=== PATIENT | female | born 1990 | race African-American/Black ===

== ENCOUNTER 2023-10-28 19:32 | Outpatient (REF) | payer OTHER, SELFPAY | END 2023-10-28 19:33 | disposition home or self-care (01) | LOC: LAB 19:32 | PROVIDERS: Visit Provider Physician Assistant | DX: Z01.419 Encounter for gynecological examination (general) (routine) without abnormal findings (principal) | CPT/HCPCS: 87624; G0145 ==

== ENCOUNTER 2024-11-02 20:32 | Outpatient (REF) | payer OTHER, SELFPAY ==
--- OUTSIDE RECORDS SUMMARY | 2024-06-30 09:58 | XMS_ITS | Continuity of Care Document ---
Author Organization [facility] Address [address] [place] [address] Phone Care Team Providers Care Electrical Equipment Technician Name Role Phone Senthil HAZEL HOOPERDanitza Unavailable Unavaila ble Allergies, Adverse Reactions, Alerts Substance Reaction Status Criticality No Known Allergies Active No Inform ation Medications Medication Instructions Dosage Effective Dates (start - stop) Status Comments doxycycline hyclate 100 mg capsule take 1 capsule by oral route 2 times every day for 7 days - Active Problems Condition Type Effective Dates (start - stop) Clini ramses Status Comments No Known Problems Procedures Procedure Date ROUTINE VENIPUNCTURE OFFICE/OUTPATIENT VISIT, EST [employer] Periodic Oral Eval Estab Patient 2022 Prophylaxis Adult Nutrit Couns For Control Of [place] Dis May Oral Hygiene Instruction Prophylaxis Adult Nutrit Couns For Control Of [place] Dis Nov Oral Hygiene Instruction Extract; Erupted Th/exposted Rt 022 [employer] Periodic Oral Eval Estab Patient 2021 Prophylaxis Adult Nutrit Couns For Control Of [place] Dis Dec Oral Hygiene Instruction Bitewings [employer] Films Panoramic Film Prophylaxis Adult Periodic Oral Eval Estab Patient 2019 Oral Hygiene Instruction Prophylaxis Adult Oral Hygiene Instruction Intraoral-complete Series (bw) 18 Comp Oral Eval New/estab Patient 2017 Nutrit Couns For Control Of [place] Dis May Oral Hygiene Instruction INIT PM E/M, NEW PAT 65+ YRS URINALYSIS, NONAUTO W/SCOPE SPECIMEN HANDLING THIN PREP PAP W/REFLEX TO ASCUS 009 Advance Directives Directive Yes / No Effective Date File Name No Information Encounters Encounter Description Practice Location Reason(s) For Visit Diagnoses Date Provider Providers Copied on Encounter [facility], [address] [place] [address], [id number], [place] tel:[phone] [facility] No Information 5 [facility] Danitza. [address] [place] [address], [id number], [place]. tel:[phone] [facility], [address] [place] [address], [id number], [place] tel:[phone] [facility] No Information 4 [facility] Daintza. [address] [place] [address], [id number], [place]. tel:[phone] OFFICE/OUTPAT IENT VISIT, EST [facility], [address] [place] [address], [id number], [place] tel:[phone] [facility] STD exposure (chief complaint) STD exposureBody mass index [BMI] 26.0-26.9, adult- STD High risk heterosexual behavior- STD screen- HIV 4 [facility] Danitza. [address] [place] [address], [id number], [place]. tel:[phone] [facility], [address] [place] [address], [id number], [place] tel:[phone] [facility] [place] ([place]) Encounter for screening for dental disorders 3 Paige Rose. [address] [place], [address], [place]. tel:[phone] [facility], [address] [place], [place], [id number], [place] tel:[phone] [facility] [place] ([place]) Encounter for screening for dental disorders 3 Cas Lenz. [address] [place], [place], [id number], [place]. tel:[phone] [facility], [address], [place], [id number], [place] tel:[phone] [facility] extraction (chief complaint) No Information 2 Kostas Maria. [address], [place], [id number], [place]. tel:[phone] [facility], [address], [place], [id number], [place] tel:[phone] [facility] Adult Prophy (chief complaint) Encounter for screening for dental disorders 2 Paige Rose. [address] [place], [address], [place]. tel:[phone] [facility], [address], [place], [id number], [place] tel:[phone] [facility] [place] ([place] complaint) Encounter for screening for dental disorder 0 Jose Cazares. [address], [place], [id number], [place]. tel:[phone] [facility], [address], [place], [id number], [place] tel:[phone] [facility] Encounter for screening for dental disorders 9 Mickie Moon. [address], [place], [id number], [place]. tel:[phone] [facility], [address], [place], [id number], [place] tel:[phone] [facility] dental new (chief complaint) Encounter for screening for dental disorders 8 Mickie Red. [address], [place], [id number], [place]. tel:[phone] INIT PM E/M, NEW PAT 65+ YRS [facility], [address], [place], [id number], [place] tel:[phone] [facility] No Information 9 Alli Sousa. [address] [place] [address], [id number]. tel:[phone] Family History Family Member Type Diagnosis Age At Onset Father Problem (finding) Alive and well Mother Problem (finding) Alive and well Father Problem (finding) hypertension Payers Payer name Insurance type Covered green party ID Authoriza tion(s) [employer] CFC [id number] Medicaid Wrap - [facility] [id number] Social History Type Description Quantity Date Captured Comments Alcohol Use Details Unknown Caffeine Use Details Unknown Tobacco Use Status No Information Smoking Status No Information Sex Female Sexual Orientation Straight or heterosexual May Gender Identity Female Chief Complaint And Reason For Visit No Information Reason For Referral Reason For Referral No Information Plan Of Treatment Date Type Action Status Goal Hep A. Due on du e Goal Influenza vaccine. Due on due Goal Tdap. Due on due Goal Hepatitis C screening. Due o n due Goal HPV. Due on due Goal Unhealthy drug use screening . Due on due Goal Tdap Vaccine. Due on 2024 due Goal PRAPARE ASSESSMENT. Due on due Goal RLP. Due on due Goal Depression screening. Due on due Goal PRAPARE ASSESSMENT. Due on due Goal Depression screening. Due on due Goal Influenza vaccine. Due on due Goal Tdap Vaccine. Due on 2023 due Goal Tdap. Due on due Goal HPV. Due on due Goal RLP. Due on due Goal Hepatitis C screening. Due o n due Goal Unhealthy drug use screening . Due on due Goal Hepatitis C screening. Due o n due Goal HPV. Due on due Goal RLP. Due on due Goal PRAPARE ASSESSMENT. Due on due Goal Tdap Vaccine. Due on 2023 due Goal Depression screening. Due on due Goal Influenza vaccine. Due on due Goal Unhealthy drug use screening . Due on due Goal Tdap. Due on due Goal Dietary management education , guidance, and counseling completed Goal PRAPARE ASSESSMENT. Due on due Goal RLP. Due on due Goal Tdap. Due on due Goal Hepatitis C screening. Due o n due Goal Depression screening. Due on due Goal Tdap Vaccine. Due on 2022 due Goal Influenza vaccine. Due on due Goal Unhealthy drug use screening . Due on due Goal HPV. Due on due Goal RLP. Due on due Goal Hep A. Due on du e Goal Depression screening. Due on due Goal Tdap Vaccine. Due on 2022 due Goal Influenza vaccine. Due on Ju due Goal Hep A. Due on du e Goal Tdap. Due on due Goal PRAPARE ASSESSMENT. Due on J due Goal Tdap. Due on due Goal RLP. Due on due Goal Depression screening. Due on due Goal PRAPARE ASSESSMENT. Due on O due Goal Influenza vaccine. Due on Oc due Goal Tdap. Due on due Goal Influenza vaccine. Due on due Goal Depression screening. Due on due Goal RLP. Due on due History Of Present Illness Encounter Date Complaint History Of Prese nt Illness STD exposure Additional infor mation: -Patient is here for STD screen. states her partner was exposed to ureaplama. She is requesting HIV, RPR and Hep C in addition to cervical cultures. She has an issues with chronic BV in the past. JEFF AGUILAR JEFF AGUILAR extraction Continue with tr eatment Adult Prophy Adult Prophy JEFF AGUILAR dental new dental [facility] Functional Status Date Functional Assessmen t No Information Instructions Date Instruction Additional Infor matty Cervical cultures an d ureaplama culture sent to lab. Patient to call in 1 week for result Related to - STD screen HIV, RPR and Hep C d rawn and sent to lab, Patient to call in 1 week for result. Encouraged to use condoms to prevent STDs in the future. Related to - HIV Giving encouragement to exercise Related to Body mass index [BMI] 26.0-26.9, adult Dietary management e ducation, guidance, and counseling Related to Body mass index [BMI] 26.0-26.9, adult Assessments Type Assessment Date No Information Patient Care Teams Name Effective Dates (start - stop) Status Members No Information
--- OUTSIDE RECORDS SUMMARY | 2024-10-06 09:15 | XMS_ITS ---
Author Organization [facility] Address [address] [place] [address] Care Team Providers Care Medicaid Analyst Name Role Phone Susan Pretty Primary Care Provider [phone] Donna Monteiro [phone] REASON FOR VISIT BH F/U Encounters Encounter Location Date Provider Diagnosis [facility] [address] [place] [address] 10/06/2024 Susan Pretty Plan Of Treatment Next Appt Details Provider Name:Susan Pretty , 11/02/2024 11:15:00 AM, [address] [place], [address], Progress Notes * LUZ ELENA ESPINOSA ODOB:[birth year] (34 yo F)Acc No.[id number]:10/06/2024 F/U - Patient Patient: Cherrie LUZ ELENA SANDY Provider: KEN Seaman :1990 A ge:34 Y S ex:Female Date:10/06/2024 Address:[address] [id number] Subjective: * Chief Complaints: * 1 . BH F/U. Objective: Therapeutic Interventions: Assessment: Plan: * Images: Care Plan Details* * Electronic signature of KEN Cantu on 11/02/2024 at 09:44 AM EDT Sign off status: Pending * Provider: KEN Seaman Date: 0 10/06/2024 Generated for Heidi phelps/Samra/Noel on: 0 11/02/2024 09:44 AM EDT
--- OUTSIDE RECORDS SUMMARY | 2024-10-12 13:30 | XMS_ITS ---
Author Organization [facility] Address [address] [place] [address] Care Team Providers Care Finance Assistant Name Role Phone Susan Pretty Primary Care Provider Donna Monteiro [phone] REASON FOR VISIT F/U Encounters Encounter Location Date Provider Diagnosis [facility] [address] [place] [address] 10/12/2024 Susan Pretty Plan Of Treatment Next Appt Details Provider Name:Susan Pretty , 11/02/2024 11:15:00 AM, [address] [place], [address], Progress Notes * LUZ ELENA ESPINOSA ODOB:[birth year] (34 yo F)Acc No.[id number]:10/12/2024 F/U - Patient Patient: Cherrie LUZ ELENA SANDY Provider: KEN Seaman :1990 A ge:34 Y S ex:Female Date:10/12/2024 Address:[id number] Subjective: * Chief Complaints: * 1 . BH F/U. Objective: Therapeutic Interventions: Assessment: Plan: * Images: Care Plan Details* * Electronic signature of KEN Cantu on 11/02/2024 at 09:44 AM EDT Sign off status: Pending * Provider: KEN Seaman Date: 0 10/12/2024 Generated for Heidi phelps/Samra/Noel on: 0 11/02/2024 09:44 AM EDT
--- OUTSIDE RECORDS SUMMARY | 2024-11-02 10:00 | XMS_ITS | Encounter Summary ---
Author Organization [facility] Address [address] [place] [address] Care Team Providers Care Transport Corps Officer Name Role Phone Unavailable Primary Care Provider Unavailabl e Reason for Visit * Reason Comments Well Women Visit Encounter Details Date Type Department Care Team (Late st Contact Info) Description 11/02/2024 10:00 AM EDT Office Visit [facility] [address] [facility] [place] [address] Susy Llanes PA [address] [place], [id number] Well woman exam with routine gynecological exam; Encounter for screening examination for sexually transmitted disease; Pelvic pain in female; Cervicitis and endocervicitis Social History Tobacco Use Types Packs/Day Years Used Date Smoking Tobacco: Former Cigarettes Smokeless Tobacco: Never Alcohol Use Standard Drinks/Week Comments Yes 1 (1 standard drink = 0.6 oz pur e alcohol) AUDIT-C Answer Date Recorded Q1: How often do you have a drink containing alc ohol? Monthly or less 05/03/2023 Q2: How many drinks containi ng alcohol do you have on a typical day when you are drinking? 1 or 2 05/03/2023 Frequency of Binge Drinking Not on file 04/08 Comments No Sex and Gender Information Value Date Recorded Sex Assigned at Female 12/18/2022 11:54 AM EDT Legal Sex Female 6:40 PM EDT Gender Identity Female 12/18/2022 11:54 AM EDT Sexual Orientation Not on file Travel History Travel Start Travel End [place] 10/01/2024 10/04/2024 documented as of this encounter Last Filed Vital Signs Vital Sign Reading Time Taken Comments Blood Pressure 110/70 11/02/2024 9:59 AM EDT Pulse - - Temperature - - Respiratory Rate - - Oxygen Saturation - - Inhaled Oxygen Concentration - - Weight 75 kg (165 lb 4 oz) 11/02/2024 9:59 AM ED T Height - - Body Mass Index 26.67 10/28/2023 2:51 PM EDT documented in this encounter Progress Notes * JEFF Ariza - 11/02/2024 10:00 AM EDT Reason for Appointment: Patient ID: Dwayne Mayers is a 34 y.o. female who presents for Well Women Visit Patient presents today for Return OB appointment. MEDICATIONS Current Outpatient Medications Medication Instructions Levonorgestrel (Mirena, 52 MG,) 20 MCG/DAY intrauterine device Mirena valACYclovir (VALTREX) 500 mg, Oral, Daily ALLERGIES Allergies Allergen Reactions Depo-Provera [Medroxyprogesterone Acetate] GI intolerance vomiting PROBLEMS Active Ambulatory Problems Diagnosis Date Noted No Active Ambulatory Problems Resolved Ambulatory Problems Diagnosis Date Noted No Resolved Ambulatory Problems Past Medical History: Diagnosis Date Adenomyosis Depression (CMS/HCC) Endometriosis Genital herpes LGSIL on Pap smear of cervix HISTORY PAST MEDICAL HISTORY SOCIAL HISTORY Past Medical History: Diagnosis Date Adenomyosis Depression (CMS/HCC) Endometriosis Genital herpes LGSIL on Pap smear of cervix Social History Tobacco Use Smoking status: Former Types: Cigarettes Smokeless tobacco: Never Substance Use Topics Alcohol use: Yes Alcohol/week: 1.0 - 2.0 standard drink of alcohol Types: 1 - 2 Standard drinks or equivalent per week Drug use: Never FAMILY HISTORY Family History Problem Relation Name Age of Onset Hypertension Father Dad SURGICAL HISTORY Past Surgical History: Procedure Laterality Date DILATION AND CURETTAGE OF UTERUS 04/2016 PELVIC LAPAROSCOPY 2010 REVIEW OF SYSTEMS Review of Systems: Review of Systems Constitutional: Negative. HENT: Negative. Eyes: Negative. Respiratory: Negative. Cardiovascular: Negative. Gastrointestinal: Negative. Genitourinary: Negative. Musculoskeletal: Negative. Skin: Negative. Neurological: Negative. All other systems reviewed and are negative. Hematological: Negative. Endocrine: Negative. Allergic/Immunologic: Negative. OBJECTIVE Objective: Physical Exam Constitutional: Appearance: Normal appearance. Genitourinary: Right Adnexa: not tender and no mass present. Left Adnexa: not tender and no mass present. No cervical discharge. IUD strings visualized. Breasts: Breasts are soft. Right: Normal. Left: Normal. HENT: Head: Normocephalic. Nose: Nose normal. Mouth/Throat: Mouth: Mucous membranes are moist. Cardiovascular: Rate and Rhythm: Normal rate. Pulmonary: Effort: Pulmonary effort is normal. Abdominal: General: Bowel sounds are normal. Palpations: Abdomen is soft. Musculoskeletal: General: Normal range of motion. Cervical back: Normal range of motion. Neurological: General: No focal deficit present. Mental Status: She is alert. Skin: General: Skin is warm and dry. Psychiatric: Mood and Affect: Mood normal. Vitals and nursing note reviewed. Exam conducted with a property assessment monitor present. Vitals: Estimated body mass index is 26.67 kg/m?? as calculated from the following: Height as of 10/28/23: 5' 6 . Weight as of this encounter: 165 lb 4 oz. BP: 110/70 No LMP recorded (lmp unknown). Patient has had an implant. ASSESSMENT & PLAN ICD-10-CM 1. Well woman exam with routine gynecological exam Z01.419 Pap Smear HPV DNA probe, amplified 2. Encounter for screening examination for sexually transmitted disease Z11.3 SURESWAB(R) ADVANCED VAGINITIS PLUS, TMA CHLAMYDIA TRACHOMATIS (GENITO/STI) Neisseria gonorrhea DNA probe, direct CANCELED: SURESWAB(R) ADVANCED VAGINITIS PLUS, TMA CANCELED: CHLAMYDIA TRACHOMATIS (GENITO/STI) CANCELED: Neisseria gonorrhea DNA probe, direct 3. Pelvic pain in female R10.2 US pelvis transvaginal Annual Exam: Patient presents today for an annual exam. Patient states she is doing well and has no complaints. Pap was obtained without difficulty. Orders Placed This Encounter Procedures HPV DNA probe, amplified US pelvis transvaginal CHLAMYDIA TRACHOMATIS (GENITO/STI) Neisseria gonorrhea DNA probe, direct Patient having some pain suprapubic with palpation, strings noted on exam, we will order US for string placement and place pt on doxycycline for cervicitis Follow Up: Patient is to return in one year for annual unless needed otherwise. Documented by JEFF Ariza on behalf of: JEFF Ariza documented in this encounter Plan of Treatment Upcoming Encounters Date Type Department Care Team (Late st Contact Info) Description 11/07/2024 11:30 AM EDT Ancillary Procedure [facility] [address] [facility] [place] [id number] 11/06/2025 11:00 AM EDT Office Visit [facility] [address] [place] [id number] Susy Llanes PA [address] [place] [address] [place], [place] [id number] Scheduled Orders Name Type Priority Associated Diagnoses Orde r Schedule Pap Smear Pathology and Cytology Routine Well woman exam with routine gynecological exam Ordered: 11/02/2024 HPV DNA probe, amplified Microbiology Routine Well woman exam with routine gynecological exam Ordered: 11/02/2024 SURESWAB(R) ADVANCED VAGINITIS PLUS, TMA Pathology and Cytology Routine Encounter for screening examination for sexually transmitted disease Ordered: 11/02/2024 CHLAMYDIA TRACHOMATIS (GENITO/STI) Lab Routine Encounter for screening examination for sexually transmitted disease Ordered: 11/02/2024 Neisseria gonorrhea DNA probe, direct Lab Routine Encounter for screening examination for sexually transmitted disease Ordered: 11/02/2024 US pelvis transvaginal Imaging Routine Pelvic pain in female Expected: 11/02/2024, Expires: 05/05/2025 documented as of this encounter Visit Diagnoses Diagnosis Well woman exam with routine gynecological exam Routine gynecological examination Encounter for screening examination for sexually transmitted disease Pelvic pain in female Unspecified symptom associated with female genital organs Cervicitis and endocervicitis documented in this encounter
--- OUTSIDE RECORDS SUMMARY | 2024-11-02 20:36 | XMS_ITS | Patient Health Record ---
Author Organization [employer] [facility] es Address [address] [place] [address] Care Team Providers Care Director Call Name Role Phone Susan Pretty Primary Care Provider [phone] Donna Monteiro Unavailable [phone] Susan Barreto Unavailable [phone] Allergies No Known Allergies Results Component Value Reference Range Notes HIV RNA, Real Time PCR Reviewed date:03/23/2024 10:37:41 PM Interpretation: Performing Lab:, [facility], [facility] [place] Notes/Report: transmitted infection) Reason for Exam Routine screening for STI (sexually HIV-1 RNA (PCR) <20 . HIV-1 RNA not detected The reportable range for this assay is 20 to 10,000,000 copies HIV-1 RNA/mL. Log10 HIV-1 RNA . Result Units: min01jhmq/mL Unable to calculate result since non-numeric result obtained for component test. Performed at: [address] [id number] Kindergarten Teacher Assistant: Jacki Sellers MD, Phone: [phone] Hepatitis Acute Panel Reviewed date:03/23/2024 10:37:41 PM Interpretation: Performing Lab:, [facility], [address] [place] Notes/Report: Kindergarten Teacher Assistant: Chito Hunt PhD, Phone: [phone] [address] [place], [place] [id number] Performed at: [facility] infection. individual), or other evidence exists to indicate HCV suspected (which may be delayed in an immunocompromised transmitted infection) Not infected with HCV unless early or acute infection is Reason for Exam Routine screening for STI (sexually Hepatitis A Antibody IgM Negative Negative A negative anti-HAV IgM result suggests no recent or current HAV infection. HBsAg Screen Negative Negative Hepatitis B Core Antibody IgM Negative Negative Hepatitis C Virus Antibody Non Reactive Non Reactive Interpretation Hepatitis C Comment . RPR w/rfx to Quant & TP Abs Reviewed date:03/23/2024 10:37:41 PM Interpretation: Performing Lab:, [facility], [address] [place] [address] , [facility] Notes/Report: Kindergarten Teacher Assistant: Chito Hunt PhD, Phone: [phone] [address], [place] [phone] transmitted infection) Performed at: [facility] Reason for Exam Routine screening for STI (sexually RPR, Rfx Quant RPR Non Reactive Non Reactive Reason For Referral No Information Medications Medication SIG (Take, Route, Fr equency, Duration) Notes Start Date End Date Status FLUoxetine HCl 20 MG 1 capsule Orally On ce a day for 30 days 04/05/2024 Active LORazepam 0.5 MG 1 tablet Orally twice a day for 30 days As needed 05/11/2024 Active methylPREDNISolone 4 MG as directed Oral ly Once a day for 6 days 06/15/2024 Active Social History Tobacco Use: Social History Observation Description Date Details (start date - stop date) Former Smoker NA - NA AUDIT-C (Standard) Question Answer Notes Did you have a drink contain ing alcohol in the past year? Yes How often did you have six o r more drinks on one occasion in the past year? Less than monthly (1 point) How many drinks did you have on a typical day when you were drinking in the past year? 1 or 2 drinks (0 point) How often did you have a dri nk containing alcohol in the past year? Monthly or less (1 point) Points 2 Interpretation Negative Tobacco Control (Standard) Question Answer Notes Tobacco use: Former smoker Problems Problem Type SNOMED Code ICD Code Onset Dates Problem Status W/U Status Risk Notes Problem Posttraumatic stress disorder (66217321) PTSD (post-traumatic stress disorder) (F43.10) Active confirmed Problem Acute stress disorder (67622443) Acute stress disorder (F43.0) Active confirmed Problem 08286350 Situational anxiety (F41.8) Active confirmed Problem 71207558 Attention defici t hyperactivity disorder (ADHD), predominantly inattentive type (F90.0) Active confirmed Problem 44034595 GAUTAM (generalized anxiety disorder) (F41.1) Active confirmed Vital Signs Heart Rate 70 /min 05/11/2024 Temperature 97.8 degrees Fahrenheit 05/11/2024 Oximetry 96 % 05/11/2024 Blood pressure diastolic 80 mm Hg 05/11/2024 Height 66 in 05/11/2024 Blood pressure systolic 120 mm Hg 05/11/2024 Weight 162.8 lbs 05/11/2024 BMI 26.27 kg/m2 05/11/2024 Encounters Encounter Location Date Provider Diagnosis [facility] [address] [place] [address] 03/15/2024 Susan Barreto Routine screening fo r STI (sexually transmitted infection) Z11.3 [facility] [address] [place] [address] 03/17/2024 Susan Barreto [facility] [address] [place] [address] 05/15/2024 Susan Barreto [facility] [address] [place] [address] 04/05/2024 Susan Barreto PTSD (post-traumatic stress disorder) F43.10 [facility] [address] [place] [address] 05/11/2024 Susan Barreto PTSD (post-traumatic stress disorder) F43.10 [facility] [address] [place] [address] 12/01/2023 Susan Pretty Acute stress disorde r F43.0 and GAUTAM (generalized anxiety disorder) F41.1 [facility] [address] [place] [address] 12/15/2023 Susan Pretty Acute stress disorde r F43.0 and GAUTAM (generalized anxiety disorder) F41.1 [facility] [address] [place] [address] 12/29/2023 Susan Pretty Acute stress disorde r F43.0 ; GAUTAM (generalized anxiety disorder) F41.1 and Attention deficit hyperactivity disorder (ADHD), predominantly inattentive type F90.0 [facility] [address] [place] [address] 01/05/2024 Susan Pretty Acute stress disorde r F43.0 and GAUTAM (generalized anxiety disorder) F41.1 [facility] [address] [place] [address] 01/12/2024 Susan Pretty Acute stress disorde r F43.0 and GAUTAM (generalized anxiety disorder) F41.1 [facility] [address] [place] [address] 01/26/2024 Susan Pretty GAUTAM (generalized anxiety disorder) F41.1 and Acute stress disorder F43.0 [facility] [address] [place] [address] 02/23/2024 Susan Pretty GAUTAM (generalized anxiety disorder) F41.1 [facility] [address] [place] [address] 03/13/2024 Susan Pretty GAUTAM (generalized anxiety disorder) F41.1 [facility] [address] [place] [address] 04/05/2024 Susan Pretty PTSD (post-traumatic stress disorder) F43.10 [facility] [address] [place] [address] 05/26/2024 Susan Pretty PTSD (post-traumatic stress disorder) F43.10 [facility] [address] [place] [address] 06/14/2024 Susan Pretty PTSD (post-traumatic stress disorder) F43.10 [facility] [address] [place] [address] 04/26/2024 Susan Pretty GAUTAM (generalized anxiety disorder) F41.1 and Attention deficit hyperactivity disorder (ADHD), predominantly inattentive type F90.0 [facility] [address] [place] [address] 11/17/2023 Susan Pretty Acute stress disorde r F43.0 [facility] [address] [place] [address] 07/05/2024 Susan Pretty PTSD (post-traumatic stress disorder) F43.10 [place] [address] [place] [address] 07/18/2024 Susan Pretty PTSD (post-traumatic stress disorder) F43.10 [address] [place] [address] 09/27/2024 Susan Pretty PTSD (post-traumatic stress disorder) F43.10 [address] [place] [address] 11/24/2023 Susan Estevan Attention deficit hyperactivity disorder (ADHD), predominantly inattentive type F90.0 ; GAUTAM (generalized anxiety disorder) F41.1 and Acute stress disorder F43.[address] [place] [address] 06/15/2024 Susan Barreto Acute non-recurrent maxillary sinusitis J01.00 [facility] [address] [place] [address] 11/12/2023 Susan Pretty GAUTAM (generalized anxiety disorder) F41.1 and Acute stress disorder F43.0 Assessments Encounter Date Diagnosis (ICD Code) Assessment Notes Treatment Notes Treatment Clinical Notes Section Notes 11/12/2023 GAUTAM (generalized anxiety disorder) (ICD-10 - F41.1) 11/17/2023 Acute stress disorder (ICD-10 - F43.0) 11/24/2023 Attention deficit hyperactivity disorder (ADHD), predominantly inattentive type (ICD-10 - F90.0) Stopped medication as we discussed today. Patient wants to focus on her therapy at this time. 12/01/2023 Acute stress disorder (ICD-10 - F43.0) 12/15/2023 Acute stress disorder (ICD-10 - F43.0) 12/29/2023 Acute stress disorder (ICD-10 - F43.0) 01/05/2024 Acute stress disorder (ICD-10 - F43.0) 01/12/2024 Acute stress disorder (ICD-10 - F43.0) 04/26/2024 GAUTAM (generalized anxiety disorder) (ICD-10 - F41.1) 05/11/2024 PTSD (post-traumatic stress disorder) (ICD-10 - F43.10) Increased dose of medication as we discussed and refills sent to the pharmacy. Patient can follow up as we discussed or sooner if needed. Encouraged patient to continue with her therapy as well 05/26/2024 PTSD (post-traumatic stress disorder) (ICD-10 - F43.10) 06/14/2024 PTSD (post-traumatic stress disorder) (ICD-10 - F43.10) 06/15/2024 Acute non-recurrent maxillary sinusitis (ICD-10 - J01.00) Sinus infections can be triggered by a secondary infection; usually a viral URI or even seasonal allergies. Take medications as directed. Use saline nasal spray prior to prescription nasal spray. Complete all doses of medication even if you start to feel better. Symptoms should improve during treatment period. Do not use any over the counter medications is received prescription cough syrup is given. Follow up with our office if no improvement of symptoms occurs by end of treatment. 07/05/2024 PTSD (post-traumatic stress disorder) (ICD-10 - F43.10) 07/18/2024 PTSD (post-traumatic stress disorder) (ICD-10 - F43.10) 09/27/2024 PTSD (post-traumatic stress disorder) (ICD-10 - F43.10) 01/26/2024 GAUTAM (generalized anxiety disorder) (ICD-10 - F41.1) 02/23/2024 GAUTAM (generalized anxiety disorder) (ICD-10 - F41.1) 03/13/2024 GAUTAM (generalized anxiety disorder) (ICD-10 - F41.1) 03/15/2024 Routine screening for STI (sexually transmitted infection) (ICD-10 - Z11.3) 04/05/2024 PTSD (post-traumatic stress disorder) (ICD-10 - F43.10) 04/05/2024 PTSD (post-traumatic stress disorder) (ICD-10 - F43.10) Discussed patient starting a daily medication and trying another PRN medication to help with the symptoms. We discussed the need for medication to get through trial she may have to go through and possibly once she get to a better place emotionally with therapy. Encouraged patient to continue therapy. 04/26/2024 Attention deficit hyperactivity disorder (ADHD), predominantly inattentive type (ICD-10 - F90.0) 12/29/2023 GAUTAM (generalized anxiety disorder) (ICD-10 - F41.1) 01/12/2024 GAUTAM (generalized anxiety disorder) (ICD-10 - F41.1) 01/26/2024 Acute stress disorder (ICD-10 - F43.0) 01/05/2024 GAUTAM (generalized anxiety disorder) (ICD-10 - F41.1) 12/15/2023 GAUTAM (generalized anxiety disorder) (ICD-10 - F41.1) 12/01/2023 GAUTAM (generalized anxiety disorder) (ICD-10 - F41.1) 11/24/2023 GAUTAM (generalized anxiety disorder) (ICD-10 - F41.1) Discussed medication as treatment options. Patient is continuing therapy in [place] Will follow up in 8 weeks and then in person because she will be out of school 11/12/2023 Acute stress disorder (ICD-10 - F43.0) 11/24/2023 Acute stress disorder (ICD-10 - F43.0) 12/29/2023 Attention deficit hyperactivity disorder (ADHD), predominantly inattentive type (ICD-10 - F90.0) 04/05/2024 Other Body Mass Index : Care Instructions material was published, Body Mass Index: Care Instructions material was printed 05/11/2024 Other Body Mass Index : Care Instructions material was published, Body Mass Index: Care Instructions material was printed Plan Of Treatment Next Appt Details Provider Name:Susan Pretty , 11/02/2024 11:15:00 AM, [address], [place], [address], Insurance Providers Payer Name Payer Address Payer Phone Subscriber Number Group Number Insured Name Patient Relationship to Insured Coverage Start Date Coverage End Date [employer] [address] [place] [address] [id number] LUZ ELENA ESPINOSA Self - patient is the insured Secondary [facility] [employer] [employer] [place] Medicaid [address] [place] [address] [id number] LUZ ELENA ESPINOSA Self - patient is the insured 5 [facility] [address] [place] [phone] [id number] LUZ ELENA ESPINOSA Self - patient is the insured 4 [facility] [address] [place] [address] [phone] [id number] LUZ ELENA ESPINOSA Self - patient is the insured 4 [facility] [address] [place] [address] [id number] LUZ ELENA ESPINOSA Self - patient is the insured 4 [facility] Medicaid [address] [place] [address] [phone] [id number] LUZ ELENA ESPINOSA Self - patient is the insured 4 5 Medical (General) History Medical History History ICD Code ADHD PTSD Surgical History Surgery Date(Month/Year) endometriosis 2013
--- OUTSIDE RECORDS SUMMARY | 2024-11-02 20:36 | XMS_ITS | Encounter Summary ---
Author Organization [facility] Address [address] [facility] [place] [address] Care Team Providers Care Community Program Assistant Name Role Phone Unavailable Primary Care Provider Unavailabl e Encounter Details Date Type Department Care Team (Latest Contact Info) Description 11/01/2024 Travel Social History Tobacco Use Types Packs/Day Years [...] file Travel History Travel Start Travel End [place] 10/01/2024 10/04/2024 documented as of this encounter Plan of Treatment Upcoming Encounters Date Type Department Care Team (Late st Contact Info) Description 11/07/2024 11:30 AM EDT Ancillary Procedure [facility] [address] [place] [address] 11/06/2025 11:00 AM EDT Office Visit [facility] [address] [place] [address] Susy Llanes PA [address] [place] [address] documented as of this encounter Visit Diagnoses Not on filedocumented in this encounter
--- OUTSIDE RECORDS SUMMARY | 2024-11-02 20:36 | XMS_ITS | Clinical Summary ---
Author Organization [facility] Address [address] [place] [facility] [place] [address] Care Team Providers Care Rand Cementer Name Role Phone Unavailable Primary Care Provider Unavailabl e Allergies Active Allergy Reactions Criticality Noted Date Comments Medroxyprogesterone Acetate GI intolerance 12/05 vomiting Medications Levonorgestrel (Mirena, 52 MG,) 20 MCG/DAY intrauterine device Mirena Active valACYclovir (Valtrex) 500 MG tabletIndications:S TD exposure TAKE 1 TABLET BY MOUTH DAILY 30 tablet 3 5 Active doxycycline (Vibramycin) 100 MG capsuleIndications: Cervicitis and endocervicitis Take 1 capsule (100 mg) by mouth in the morning and 1 capsule (100 mg) before bedtime. Do all this for 7 days. Take with at least 8 ounces (large glass) of water, do not lie down for 30 minutes after. 14 capsule 5 11/10/19 25 Active Encounters Date Type Department Care Team Description 11/02/2024 10:00 AM EDT Office Visit [facility] [address] [facility] [place] [place] [address] Susy Llanes PA Well woman exam with routine gynecological exam; Encounter for screening examination for sexually transmitted disease; Pelvic pain in female; Cervicitis and endocervicitis 11/02/2024 Bamboo flowsheet [facility] [address] [place] [address] Susy Llanes PA 11/01/2024 Travel 09/07/[address] [facility] [address] [place] [address] Shashi Cesar DO STD exposure 09/06/2024 Orders Only [facility] [address] [place] [address] Kylee Concepcion LPN 08/14/[address] [facility] [address] [place] [address] Ruth Hernandez LPN from Last 3 Months Family History Medical History Relation Name Comments Hypertension Father Dad Relation Name Status Comments Brother 3 Father Dad Alive Mother Alive Sister 3 Son 1 Social History Tobacco Use Types Packs/Day Years Used Date Smoking Tobacco: Former Cigarettes Smokeless Tobacco: Never Tobacco Cessation:Counseling Given: Not Answered Alcohol Use Standard Drinks/Week Comments Yes 1 [...] file Travel History Travel Start Travel End [place] 10/01/2024 10/04/2024 Last Filed Vital Signs Vital Sign Reading Time Taken Comments Blood Pressure 110/70 11/02/2024 9:59 AM EDT Pulse - - Temperature - - Respiratory Rate - - Oxygen Saturation - - Inhaled Oxygen Concentration - - Weight 75 kg (165 lb 4 oz) 11/02/2024 9:59 AM ED T Height 167.6 cm (5' 6 ) 10/28/2023 2:51 PM EDT Body Mass Index 26.67 10/28/2023 2:51 PM EDT Plan of Treatment Upcoming Encounters Date Type Department Care Team (Late st Contact Info) Description 11/07/2024 11:30 AM EDT Ancillary Procedure [facility] [address] [place] [address] 11/06/2025 11:00 AM EDT Office Visit [facility] [address] [facility] [place] [address] Susy Llanes PA [address] [place] [address] Health Maintenance Due Date Last Done Comments HPV/Cotest 2020 Cervical Cancer Screening 10/27/2026 Pap Smear 10/27/2026 10/28/2023, 10/05, 10/22/2015, Additional history exists Influenza Vaccine Completed 05/15/2024, , 04/06/2022, Additional history exists Procedures Procedure Name Priority Date/Time Associated Diagnosis Comments PAP SMEAR Routine 10/28/2023 12:00 AM EDT from Last 3 Months or Most Recently Relevant to Health Maintenance Results * Pap Smear (10/28/2023 12:00 AM EDT) Swab Cervical swab / Unknown us [facility] Arsenio Nurse LAB CYTOLOGY ORDERABLES Final Result EXTERNAL LAB from Last 3 Months or Most Recently Relevant to Health Maintenance Insurance [employer]
--- OUTSIDE RECORDS SUMMARY | 2024-11-02 20:36 | XMS_ITS | Encounter Summary ---
Author Organization [facility] Address [address] [facility] [place] [address] Care Team Providers Care Band Saw Operator Name Role Phone Unavailable Primary Care Provider Unavailabl e Encounter Details Date Type Department Care Team (Late Contact Info) Description 11/02/2024 Bamboo flowsheet [facility] [address] [facility] [place] [address] Susy Llanes PA [address] [facility] [address] [place], [facility] Social History Tobacco Use Types Packs/Day Years [...] file Travel History Travel Start Travel End [place] 10/01/2024 10/04/2024 documented as of this encounter Plan of Treatment Upcoming Encounters Date Type Department Care Team (Late st Contact Info) Description 11/07/2024 11:30 AM EDT Ancillary Procedure [facility] [address] [place] [address] 11/06/2025 11:00 AM EDT Office Visit [facility] [address] [place] [address] Susy Llanes, PA [address] [facility] [address] [place], [place] [id number] documented as of this encounter Visit Diagnoses Not on filedocumented in this encounter
--- OUTSIDE RECORDS SUMMARY | 2024-11-02 20:36 | XMS_ITS | Encounter Summary ---
Author Organization [facility] Address [address] [facility] [place] [address] Care Team Providers Care Child Development Professor Name Role Phone Unavailable Primary Care Provider Unavailabl e Encounter Details Date Type Department Care Team (Late Contact Info) Description 09/06/2024 Orders Only [facility] [address] [place] [address] Kylee Concepcion LPN [address] [place] [address] Social History Tobacco Use Types Packs/Day Years [...] file Travel History Travel Start Travel End [place] 10/01/2024 10/04/2024 documented as of this encounter Plan of Treatment Upcoming Encounters Date Type Department Care Team (Late Contact Info) Description 11/07/2024 11:30 AM EDT Ancillary Procedure [facility] [address] [place] [address] 11/06/2025 11:00 AM EDT Office Visit [facility] [address] [place] [address] Susy Llanes PA [address] [facility] [place] [address] documented as of this encounter Procedures Procedure Name Priority Date/Time Associated Diagnosis Comments PAP SMEAR Routine 10/28/2023 12:00 AM EDT documented in this encounter Results * Pap Smear (10/28/2023 12:00 AM EDT) Swab Cervical swab / Unknown us [facility] Nurse LAB CYTOLOGY ORDERABLES Final Result EXTERNAL LAB documented in this encounter Visit Diagnoses Not on filedocumented in this encounter
--- OUTSIDE RECORDS SUMMARY | 2024-11-02 20:36 | XMS_ITS | Clinical Summary ---
Author Organization [facility] Address [address] [place] [address] Care Team Providers Care Radiology Special Procedure Tech Name Role Phone Unavailable Primary Care Provider Unavailabl e Allergies Active Allergy Reactions Criticality Noted Date Comments Tropical Birds [Other] 04/23/2003 Medications Cholecalciferol, Vitamin D3, 1,000 unit ORAL Tab Take by mouth. 2,000 units daily 0 08/17/2011 Active NORGESTIMATE-ETH INYL ESTRADIOL (TRINESSA, 28, ORAL) Take by mouth. Active Immunizations Immunization Administration Dates Next Due influenza (IIV3) vaccine, tr ivalent, PF (AFLURIA, FLUARIX, FLULAVAL, FLUVIRIN, FLUZONE) 05/15/2024 Family History Medical History Relation Comments Thyroid Maternal Grandmother Hyperthyroi dism Relation Status Comments Maternal Grandmother Social History Tobacco Use Types Packs/Day Years Used Date Smoking Tobacco: Every Day Cigarettes 1 3 Smokeless Tobacco: Never Tobacco Cessation:Ready to Q uit: No; Counseling Given: Yes Alcohol Use Standard Drinks/Week Comments Yes 0 (1 standard drink = 0.6 oz pure alcohol) 3 times a week, 4 drinks each time. 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 Not on file Not on file Last Filed Vital Signs Vital Sign Reading Time Taken Comments Blood Pressure 114/62 10/07/2015 2:33 PM EDT Pulse 70 08/17/2011 11:21 AM EDT Temperature - - Respiratory Rate - - Oxygen Saturation - - Inhaled Oxygen Concentration - - Weight 73 kg (161 lb) 10/07/2015 2:33 PM EDT Height 167.6 cm (5' 6 ) 10/07/2015 2:33 PM EDT Body Mass Index 25.99 10/07/2015 2:33 PM EDT Plan of Treatment Health Maintenance Due Date Last Done Comments Anxiety Screening 2008 Depression Screening 2008 HIV Screening 2008 Hepatitis C Screening 2008 DTaP,Tdap,Td Vaccine (1 - Tdap) 2009 Hepatitis B Vaccine (1 of 3 - 19+ 3-dose series) 09/15 Cervical Cancer Screening 09/16/2011 Covid-19 Vaccine (2023- season) 2024 Influenza Vaccine Completed 05/15/2024 Insurance [facility] [employer] Member Subscriber Plan / Payer (Ef fective 2021-Present) Name:Dwayne Mayers Relation to Subscriber:Self Name:Dwayne Mayers Jason Payer ID:[id number] (NAIC) Group ID:[id number] Type:Medicaid Address: [facility] [address] [id number]
--- OUTSIDE RECORDS SUMMARY | 2024-11-02 20:36 | XMS_ITS | CCD ---
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 By: #### [id number] #### [facility] [address] [place] [address] Dr. Nathaniel Macias Methodology: Comment Normal [facility] Comment on above: Result Comment: This liquid based ThinPrep(R) pap test was screened with the use of an image guided system. Performed at: WB Performed By: #### [id number] #### [facility] [address] [place] [address] Dr. Nathaniel Macias Note: Comment Normal [facility] Comment on above: Result Comment: The Pap smear is a screening test designed to aid in the detection of premalignant and malignant conditions of the uterine cervix. It is not a diagnostic procedure and should not be used as the sole means of detecting cervical cancer. Both false-positive and false-negative reports do occur. . Performed at: WB Performed By: #### [id number] #### [facility] [address] [place] [address] Dr. Nathaniel Macias Performed by: Comment Normal [facility] Comment on above: Result Comment: Marysol Jackson Director Long Term Care (ASCP) Performed at: BA Performed By: #### [id number] #### [facility] [address] [place] [address] Dr. Nathaniel Macias Specimen adequacy: Comment Normal [facility] Comment on above: Result Comment: Sati sfactory for evaluation. Endocervical and/or squamous metaplastic cells (endocervical component) are present. Performed at: BA Performed By: #### [id number] #### [facility] [address] [place] [address] Dr. Nathaniel Macias Vital Signs Date Time Vital Sign Value Performing Clinician Facility 11-02-2024 09:59-0400 Body mass index (BMI) [Ratio] 26.67 kg/m2 Susy Rubio PA Work Phone: [facility] 11-02-2024 09:59-0400 Body weight 74.96 kg Susy Rubio PA Work Phone: [facility] 11-02-2024 09:59-0400 Diastolic blood pressure 70 mm[Hg] Susy Rubio PA Work Phone: [facility] 11-02-2024 09:59-0400 Systolic blood pressure 110 mm[Hg] Susy Rubio PA Work Phone: [facility] [email or web address] 03-06-2022 10:00-0400 Body height 165.1 cm Lianna Waddell Other [facility] Other 03-06-2022 10:00-0400 Body mass index (BMI) [Ratio] 27.29 kg/m2 Lianna Waddell Other [facility] Other 03-06-2022 10:00-0400 Body temperature 98 [degF] Lianna Waddell Other [facility] Other 03-06-2022 10:00-0400 Body weight 74.39 kg Lianna Waddell Other [facility] Other 03-06-2022 10:00-0400 Respiratory rate 18 /min Lianna Waddell Other [facility] Other 03-06-2022 10:00-0400 SaO2% (BldA) [Mass fraction] 99 % Lianna Waddell Other [facility] Other 01-12-2022 11:30-0400 Body height 165.1 cm Susan Holcomb Other [facility] Other 01-12-2022 11:30-0400 Body mass index (BMI) [Ratio] 27.39 kg/m2 Susan Holcomb Other [facility] Other 01-12-2022 11:30-0400 Body temperature 97.7 [degF] Susan Holcomb Other [facility] Other 01-12-2022 11:30-0400 Body weight 74.66 kg Susan Holcomb Other [facility] Other 01-12-2022 11:30-0400 Diastolic blood pressure 85 mm[Hg] Susan Holcomb Other [facility] Other 01-12-2022 11:30-0400 Respiratory rate 18 /min Susan Holcomb Other [facility] Other 01-12-2022 11:30-0400 SaO2% (BldA) [Mass fraction] 100 % Susan Holcomb Other [facility] Other 01-12-2022 11:30-0400 Systolic blood pressure 118 mm[Hg] Susan Holcomb Other [facility] Other Encounters Encounter Date Encounter Type Care Provider Facility Start: 11-02-2024 End: 11-02-2024 Bamboo flowsheet Susy AGUILAR Work Phone: [facility] Start: 11-02-2024 End: 11-02-2024 Bamboo flowsheet Susy AGUILAR Work Phone: [facility] Start: 11-02-2024 End: 11-02-2024 Patient encounter procedure Susy AGUILAR Work Phone: [facility] Start: 11-02-2024 End: 11-02-2024 Periodic preventive med est patient 18-39 yrs Susy AGUILAR Work Phone: [facility] Comment on above: Well woman exam with routine gynecological exam; Encounter for screening examination for sexually transmitted disease; Pelvic pain in female; Cervicitis and endocervicitis Start: 03-15-2024 End: 03-15-2024 Patient encounter procedure ENVIRONMENTAL SCIENCE TECHNICIAN-BC Susan Holcomb Work Phone: [facility] Work Phone: Start: 03-15-2024 End: 03-15-2024 ambulatory Susan Holcomb Facility:[facility] Start: 10-28-2023 End: 10-28-2023 ambulatory SUSY RUBIO Not Available Start: 08-15-2023 End: 08-15-2023 Emergency department patient visit Lexi Jack Daphne Facility:[facility] Start: 05-05-2023 End: 05-05-2023 ambulatory SUSY RUBIO Not Available Start: 12-16-2022 End: 12-16-2022 ambulatory Debbie Marcial Other [facility] Other Start: 12-16-2022 Telephone encounter Debbie Caruso [facility] Start: 06-15-2022 End: 06-16-2022 ambulatory JEFF RUBIO Facility: Start: 03-06-2022 End: 03-06-2022 ambulatory Lianna Waddell Other [facility] Other Start: 03-06-2022 Office outpatient vi sit 15 minutes Lianna Waddell [facility] Start: 01-13-2022 End: 01-13-2022 Patient encounter procedure ENVIRONMENTAL SCIENCE TECHNICIAN-C Susan Holcomb Work Phone: [facility] Start: 01-12-2022 End: 01-12-2022 ambulatory Susan Holcomb Other [facility] Other Start: 01-12-2022 Office outpatient vi sit 15 minutes Susan Holcomb [facility] Start: 12-23-2021 End: 12-23-2021 Patient encounter procedure ENVIRONMENTAL SCIENCE TECHNICIAN-C Susan Holcomb Work Phone: [facility] Start: 12-22-2021 End: 12-22-[address] CONCEPCION CESAR Facility:[facility] Start: 11-05-[address] CONCEPCION CESAR Facility :[facility] Start: 10-22-2021 End: 10-22-[address] CONCEPCION CESAR Facility:[facility] Procedures Date Procedure Procedure Detail Performing Clinician Start: 10-28-2023 Microscopic observat ion [Identifier] in Cervix by Cyto stain Susy AGUILAR Work Phone: Start: 12-23-2021 Pelvic echography [facility] Susan Holcomb Work Phone: Start: 12-23-2021 Transvaginal echography [facility] Susan Holcomb Work Phone: Plan of Treatment Date Care Activity Detail Author Start: 10-27-2026 Screening for malign ant neoplasm of cervix [facility] Start: 11-06-2025 End: 11-06-2025 Patient encounter procedure 11/06/2025 11:00 AM EDT Office [facility] [address] [place] [address] Susy Rubio PA [address] [place] [address] [facility] Start: 11-07-2024 End: 11-07-2024 Professional / ancillary services management 11/07/2024 11:30 AM EDT Ancillary Procedure [facility] [address] [place] [address] [facility] Start: 11-02-2024 End: 05-05-2025 US Pelvis transvaginal US pelvis transvaginal Imaging Routine Pelvic pain in female Expected: 11/02/2024, Expires: 05/05/2025 [facility] Comment on above: Expected: 11/02/2024 , Expires: 05/05/2025 Start: 11-02-2024 End: 11-02-2024 Patient encounter procedure 11/02/2024 10:00 AM EDT Office Visit [facility] [address] [address] Susy Rubio PA [address] [place] [address] Arrived [facility] Comment on above: Arrived Start: 2020 Screening for malign ant neoplasm of cervix HPV/Cotest [facility] CHLAMYDIA TRACHOMATI S (GENITO/STI) CHLAMYDIA TRACHOMATIS (GENITO/STI) Lab Routine Encounter for screening examination for sexually transmitted disease Ordered: 11/02/2024 [facility] Comment on above: Ordered: 11/02/2024 Cytology Cervical or vaginal smear or scraping study Pap Smear Pathology and Cytology Routine Well woman exam with routine gynecological exam Ordered: 11/02/2024 [facility] Work Phone: Comment on above: Ordered: 11/02/2024 Hepatitis A virus antibody, IgM type [facility] Hepatitis B core antibody measurement, IgM type [facility] Hepatitis B virus surface Ag [Presence] in Serum or Plasma by Immunoassay [facility] Hepatitis C virus Ig G Ab [Presence] in Serum or Plasma by Immunoassay [facility] Hepatitis C virus RN A [log units/volume] (viral load) in Serum or Plasma by TYREE with probe detection [facility] Hepatitis C virus RN A [Units/volume] (viral load) in Serum or Plasma by TYREE with probe detection [facility] HIV 1 RNA [#/volume] (viral load) in Unspecified specimen by TYREE with probe detection [facility] HIV 1 RNA [Log #/vol ume] (viral load) in Unspecified specimen by TYREE with probe detection [facility] Human papilloma viru s DNA [Presence] in Unspecified specimen by Probe with amplification HPV DNA probe, amplified Microbiology Routine Well woman exam with routine gynecological exam Ordered: 11/02/2024 [facility] Comment on above: Ordered: 11/02/2024 Neisseria gonorrhoea e DNA [Presence] in Unspecified specimen by TYREE with probe detection Neisseria gonorrhea DNA probe, direct Lab Routine Encounter for screening examination for sexually transmitted disease Ordered: 11/02/2024 [facility] Comment on above: Ordered: 11/02/2024 Reagin Ab [Presence] in Serum by RPR [facility] SURESWAB(R) ADVANCED VAGINITIS PLUS, TMA SURESWAB(R) ADVANCED VAGINITIS PLUS, TMA Pathology and Cytology Routine Encounter for screening examination for sexually transmitted disease Ordered: 11/02/2024 [facility] Comment on above: Ordered: 11/02/2024 Immunizations Immunization Date Immunization Notes Care Provider Fa cility 10-17-2020 COVID-19 Moderna Susan B recarlos Other [facility] 09-19-2020 COVID-19 Moderna Susan B marcella Other [facility] 02-27-2011 TORADOL/KETOROLAC 15 mg/ml Susan Aicha Other [facility] Other 01-19-2003 hepatitis B vaccine, pediatric or pediatric/adolescent dosage Susan Aicha Other [facility] 02-28-1998 hepatitis B vaccine, pediatric or pediatric/adolescent dosage Susan Aicha Other [facility] 11-30-1997 hepatitis B vaccine, pediatric or pediatric/adolescent dosage Susan Aicha Other [facility] 01-04-1996 measles, mumps and rubella virus vaccine Susan Aicha Other [facility] 06-21-1992 measles, mumps and rubella virus vaccine Susan Aicha Other [facility] 12-14-1991 diphtheria, tetanus toxoids and pertussis vaccine Susan Aicha Other [facility] 03-17-1991 diphtheria, tetanus toxoids and pertussis vaccine Susan Aicha Other [facility] 03-17-1991 trivalent poliovirus vaccine, live, oral Susan Holcomb Other [facility] 1990 diphtheria, tetanus toxoids and pertussis vaccine Susan Holcomb Other [facility] 1990 trivalent poliovirus vaccine, live, oral Susan Holcomb Other [facility] Payers Date Payer Category Payer Managed Care O (unspecified[place] [facility] [place] Address: [address] [address] [id number] 2023 Self-pay [id number] 2021 Medicaid [id number] 1990 Unknown [id number] [id number] 1990 Unknown [id number]. [id number] 1990 Unknown [id number]. [id number] 1990 Unknown [id number] [id number]. [id number] 1990 Unknown [id number]. 2.1259 1990 Unknown [id number]. [id number] 1959 Private Health Insurance [id number] 1959 Unknown [id number] Unknown [facility] Employees [id number] Unknown [id number] [id number]. 2.531 Unknown [id number] [id number] Social History Date Type Detail Facility Unknown if ever smoked [facility] Other Start: 05-03-2023 End: 10-28-2023 Sex Assigned At [facility] Start: 12-22-2018 End: 10-28-2023 Tobacco smoking status NVIS Ex-smoker (finding) [facility] Start: 1990 Sex Assigned At Female [facility] Start: 08-15-2023 Tobacco smoking stat us [facility] Never smoked tobacco (finding) [facility] History of tobacco use Current smoker [facility] History of tobacco use Cigarette Smoker [facility] Start: 10-28-2023 Tobacco use and exposure Smokeless tobacco non-user [facility] Start: 10-28-2023 Alcoholic beverage intake Current drinker of alcohol (finding) [facility] Start: 05-03-2023 End: 10-28-2023 History of Social function [facility] How often to you hav e a drink containing alcohol? Monthly or less [facility] How many standard drinks containing alcohol do you have on a typical day? 1 or 2 [facility] Frequency of Binge Drinking Not on file [facility] Start: 12-18-2022 Gender identity Identifies as female gender (finding) [facility] History of Present illness Narrative 11-02-2024 JEFF Ariza - 11/02/2024 10:00 AM EDT Note Date & Type Note Facility 11-02-2024 History of Presen t illness Narrative Reason for Appointment: Patient ID: Dwayne Mayers [...] and no mass present. No cervical discharge. Breasts: Breasts are soft. Right: Normal. Left: [...] nursing note reviewed. Exam conducted with a bunch maker hand present. Vitals: Estimated body mass index is 26.67 kg/m as calculated from the following: Height as [...] of: JEFF Ariza documented in this encounter [facility] Evaluation note 03-06-2022 Note Date & Type Note Facility 03-06-2022 Evaluation note Encounter Date Diagnosis Assessment Notes Feb, Left wrist pain (ICD-10 - M25.532) Feb, Tendinitis of left wrist (ICD-10 - M77.8) XR FINDINGS: The radiocarpal joint and carpal rows are preserved. There is no evidence of fracture. No dislocation. No significant soft tissue swelling. Discussed final report c pt while in clinic. advised RICE therapy. may use otc NSAIDs, topical voltaren or PO aleve, tylenol for breakthrough pain. ice/warm compresses as directed. also recommended pt splint for comfort. immediate eval if warning symptoms of intractable pain or neurovascular compromise. otherwise follow up with PCP if new/worsening symptoms despite tx x 1-2 weeks [facility] Other Evaluation note 01-12-2022 Note Date & Type Note Facility 01-12-2022 Evaluation note Encounter Date Diagnosis Assessment Notes Jan, Syncope, near (ICD-10 - R55) We will start with these tests and then decided what steps to take based on these results. [facility] Other History general Narrative - Reported 07-20-2016 Note Date & Type Note Facility 07-20-2016 History general N arrative - Reported Type Medical History menorrhagia Medical History resolved depression Medical History anxiety Surgical History none Surgical History UTERUS DR CESAR 07-20-2016 Hospitalization History [facility] 01/2018 Hospitalization History [facility] 11/2019 [facility] Other Evaluation note Note Date & Type Note Facility Evaluation note No assessment information [facility] Work Phone: Evaluation note Note Date & Type Note Facility Evaluation note No Information [facility] Other Evaluation note Note Date & Type Note Facility Evaluation note Diagnosis Well woman exam with routine gynecological exam Routine gynecological examination Encounter for screening examination for sexually transmitted disease Pelvic pain in female Unspecified symptom associated with female genital organs Cervicitis and endocervicitis documented in this encounter [facility] Chief Complaint and Reason for Visit Chief Complaint R10.2 r55 Chief Complaint Z11.3 Advance Directives Advance Directive Response Recorded Date/ Time Advance Directives No July 12:57pm Summary Purpose Family History Relationship Condition Age at Onset Recorded Date/T pranav aunt Hypothyroidism Unknown father Hypertension Unknown grandparent Hypertension Unknown grandparent Hyperthyroidism Unknown grandparent Unknown Additional Source Comments REASON FOR VISIT (unrecogniz ed section and content) Reason Comments Well Women Visit Care Teams (unrecognized sec tion and content) Team Status: Inactive Member Role Status Dates QUINCY James Primary Care Provider, Atten ding Provider Active Team Status: Inactive Member Role Status Dates QUINCY James Primary Care Provider Active Concepcion Cesar Attending Provider Active Team Status: Active Member Role Status Dates QUINCY James Primary Care Provider Active Team Status: Active Member Role Status Dates RAFITA James Primary Care Provider Activ e Team Status: Inactive Member Role Status Dates RAFITA James Primary Care Provider, Attending Provider Active Start: March 15, 2024 End: March 15, 2024 Goals (unrecognized section and content) Goals may be documented in a n alternate section INFORMATION SOURCE (unrecogn ized section and content) DATE CREATED AUTHOR 06/18/2022 [facility] DATE CREATED AUTHOR AUTHOR'S ORGANIZ ATION 10/30/[address] [facility] EPIC DATE CREATED AUTHOR AUTHOR'S ORGANIZ ATION 03/17/2024 [facility] FOR RECORDS PERTAINING TO PATIENTS WHO ARE OR HAVE BEEN ENROLLED IN A CHEMICAL DEPENDENCY/SUBSTANCEABUSE PROGRAM, SOME INFORMATION MAY BE OMITTED. This clinical summary was aggregated from multiple sources. Caution should be exercised in using it in the provision of clinical care. This summary normalizes information from multiple sources, and as a consequence, information in this document may materially change the coding, format and clinical context of patient data. In addition, data may be omitted in some cases. CLINICAL DECISIONS SHOULD BE BASED ON THE PRIMARY CLINICAL RECORDS. [employer] [facility]. provides no warranty or guarantee of the accuracy or completeness of information in this document.
--- OUTSIDE RECORDS SUMMARY | 2024-11-02 20:36 | XMS_ITS | Clinical Summary ---
Author Organization [employer] tem Address [id number] [address] [place] [address] Care Team Providers Care Marine Cargo Inspector Name Role Phone No Pcp, No Pcp Primary Care Provider Unavailabl e Allergies No known active allergies Medications CEPHalexin (KEFLEX) 500 mg capsule Take 1 capsule by mouth 3 (three) times a day. 08/26/2017 Active VIT CALC,IRON,FOLIC ( VITAMIN ORAL) Take 1 tablet by mouth daily. Active valACYclovir (VALTREX) 500 mg tablet Take 500 mg by mouth daily. Active Active Problems No known active problems Family History Medical History Relation Name Comments Hypertension Father Arthritis Maternal Grandmother Diabetes Maternal Grandmother Hypertension Maternal Grandmother Alcohol abuse Mother Arthritis Mother Bipolar disorder Mother Depression Mother Alcohol abuse Paternal Grandfather Diabetes Paternal Grandmother Kidney disease Paternal Grandmother Relation Name Status Comments Father Maternal Grandmother Mother Paternal Grandfather Paternal Grandmother Social History Tobacco Use Types Packs/Day Years Used Date Smoking Tobacco: Former Cigarettes Smokeless Tobacco: Never Alcohol Use Standard Drinks/Week Comments Yes 0 (1 standard drink = 0.6 oz pur e alcohol) Socially prior to Childcare Answer Date Recorded Childcare Unknown 11/17/2018 Employment Answer Date Recorded Employment Unknown 11/17/2018 Purpose - Life Answer Date Recorded Purpose and direction in life Unknown Comments No Sex and Gender Information Value Date Recorded Sex Assigned at Not on file Legal Sex Female 1:45 PM EDT Gender Identity Not on file Sexual Orientation Not on file Last Filed Vital Signs Vital Sign Reading Time Taken Comments Blood Pressure 115/64 05/08/2019 8:18 AM EST Pulse 69 05/08/2019 8:18 AM EST Temperature - - Respiratory Rate 18 09/01/2017 9:05 AM EDT Oxygen Saturation - - Inhaled Oxygen Concentration - - Weight 82.8 kg (182 lb 8.7 oz) 05/08/2019 8:18 A M EST Height 167.6 cm (5' 6 ) 09/01/2017 9:05 AM EDT Body Mass Index 29.46 09/01/2017 9:05 AM EDT Plan of Treatment Health Maintenance Due Date Last Done Comments Depression Screening 2002 Tobacco Screening 2002 Adult BMI Screening 2008 DTaP,Tdap and Td Vaccines (1 - Tdap) 2009 Pap Smear 09/16/2011 Influenza Vaccine 02/05/2025 Medical Devices Not on file Insurance [employer] Care Teams Marine Cargo Inspector Relationship Specialty Start Date End Date No Pcp, [id number] PCP - General Family Medicine 09/01/17
== END 2024-11-02 20:33 | disposition home or self-care (01) ==
LOC: LAB 20:32
PROVIDERS: Visit Provider Physician Assistant
DX: Z01.419 Encounter for gynecological examination (general) (routine) without abnormal findings (principal)
CPT/HCPCS: 87624; 88175